=== PATIENT | female | born 1975 | race Caucasian/White ===

== ENCOUNTER 2024-03-19 07:59 | Day surgery (SDC) | payer BC ==
[2024-03-18 13:23] VITALS: BMI 29.1
[2024-03-19 09:51] LABS: Hematocrit 37.1 % (34.9-44.5)
[2024-03-19] MEDS ORDERED: AFRIN NASAL MIST 15 ML BOT ONE (09:51)
[2024-03-19] MEDS ORDERED: fentaNYL 50 mcg/mL 1 mL Vial ONE (09:54)
[2024-03-19] MEDS ORDERED: PROPOFOL 20 ML ONE (09:54)
[2024-03-19] MEDS ORDERED: Dexamethasone 20 MG/5 ML VIAL ONE (09:54)
[2024-03-19] MEDS ORDERED: Lidocaine 1% PF 5 ML VIAL ONE (09:54)
[2024-03-19] MEDS ORDERED: Midazolam HCl 2 mg/2 ml Vial ONE (09:54)
[2024-03-19] MEDS ORDERED: Ondansetron PF 4 MG/2 ML Vial ONE (09:54)
[2024-03-19] MEDS ORDERED: EPINEPHrine 1 MG/ML VIAL ONE (10:44)
[2024-03-19] MEDS ORDERED: Lidocaine 1% w/Epinephrine 1:200K 30 ML VIAL ONE (10:44)
[2024-03-19] MEDS ORDERED: Glycopyrrolate 0.2 MG/ML 5 ML SYRINGE ONE (11:36)
[2024-03-19] MEDS ORDERED: Fentanyl 250 MCG/5 ML VIAL ONE (12:14)
[2024-03-19] MEDS ORDERED: HYDROcodone/Acetaminophen 5/325 mg Tablet ONE (12:54)
== END 2024-03-19 13:25 | disposition home or self-care (01) ==
LOC: CSHSDC 07:59
PROVIDERS: ATTEND Specialist
PROC: 099R8ZZ Drainage of Left Maxillary Sinus, Via Natural or Artificial Opening Endoscopic (ICD-10-PCS; principal; 2024-03-19)
DX: J32.0 Chronic maxillary sinusitis (principal); I10 Essential (primary) hypertension; E78.5 Hyperlipidemia, unspecified; J30.2 Other seasonal allergic rhinitis; I47.19 Other supraventricular tachycardia; Z90.710 Acquired absence of both cervix and uterus; Z98.890 Other specified postprocedural states; Z79.899 Other long term (current) drug therapy
CPT/HCPCS: 85014; 87070; 87077; 87186; 87205; 93005; 93010; J0171; J1100; J2250; J2405; J2704; J3010